=== PATIENT | female | born 1960 | race Caucasian/White ===

== ENCOUNTER 2022-07-08 10:29 | Inpatient (IN) | payer MEDICAID, OTHER ==
[~2022-07-08] VITALS: Ht 160 cm; Wt 61.1 kg
[2022-07-08] MEDS ORDERED: METOCLOPRAMIDE HCL 5MG/ml INJ 2ml VIAL IV ONE (11:00)
[2022-07-08] MEDS ORDERED: FAMOTIDINE (10MG/ML) 2ML VL IV ONE (11:00)
[2022-07-08] MEDS ORDERED: LACTATED RINGER'S 1,000 ML IV ONE (11:00)
[2022-07-08 11:31] LABS: Hematocrit 34.9 % (36.0-46.0); Hemoglobin 11.5 g/dL (12.2-16.2); Mean Corpuscular Hemoglobin 31.9 pg (28.0-32.0); Mean Corpuscular Hgb Conc. 33.1 g/dL (32.0-36.0); Mean Corpuscular Volume 96.3 fL (80.0-100.0); Red Blood Cells 3.62 10^6/uL (4.0-5.20); Red Cell Distribution Width 16.1 % (11.8-14.3); White Blood Cell 13.7 10^3/uL (4.4-10.8)
[2022-07-08 11:35] LABS: Basophils % (manual) 0 (0.0-2.0); Blast Cells 0; Eosinophils % (manual) 0 (0-7); Metamyelocytes % 0; Myelocytes % 0; Promyelocytes % 0; Reactive Lymphocytes 0
[2022-07-08 11:37] LABS: Urine Bacteria NONE SEEN /hpf (None Seen); Urine Blood 1+ /uL (Negative); Urine Mucus MANY (None Seen); Urine Specific Gravity 1.034 (1.001-1.035); Urine WBC 209 /hpf (0 - 5)
[2022-07-08 12:00] LABS: Albumin 2.6 g/dL (3.4-5.0); Calcium 8.6 mg/dL (8.5-10.1); Magnesium 2.9 mg/dL (1.6-2.6)
[2022-07-08 12:05] LABS: BUN/Creatinine Ratio 29.9 (10.0-20.0); Bilirubin, Total 0.8 mg/dL (0.2-1.0); Total Protein 6.7 g/dL (6.4-8.2)
[2022-07-08 12:44] LABS: Band Neutrophils % (manual) 21; Lymphocytes % (manual) 1 (10.0-50.0); Monocytes % (manual) 3 (0-12)
[2022-07-08] MEDS: MAALOX PLUS or MAALOX 30 ML PO ONE ×2 (13:03→14:40)
[2022-07-08] MEDS: LIDOCAINE VISCOUS 2% 15ML UD PO ONE ×2 (13:04→14:40)
[2022-07-08] MEDS: POTASSIUM CHL 20 Meq TABLET PO ONE ×2 (13:56→14:41)
[2022-07-08] MEDS ORDERED: PANT40T PO (14:22)
[2022-07-08] MEDS ORDERED: CHOL20003 PO (14:22)
[2022-07-08] MEDS ORDERED: HYDR12.56 PO (14:22)
[2022-07-08] MEDS ORDERED: FAMO40SU5 PO (14:22)
[2022-07-08] MEDS ORDERED: LEUC5TAB PO (14:22)
[2022-07-08] MEDS ORDERED: FAMO20TA10 PO (14:22)
[2022-07-08] MEDS ORDERED: GABA100C9 (14:22)
[2022-07-08] MEDS ORDERED: NIFE-3 (14:22)
[2022-07-08] MEDS ORDERED: ALEN70TA74 PO (14:22)
[2022-07-08] MEDS ORDERED: METH2.5T PO (14:22)
[2022-07-08] MEDS ORDERED: FAMO20TA7 (14:22)
[2022-07-08] MEDS ORDERED: MYCO500T3 PO (14:22)
[2022-07-08] MEDS ORDERED: cefTRIAXone 1GM/50ML D5W 50 ML IV ONE (14:30)
[2022-07-08] MEDS ORDERED: D5W/SOD CHL 0.45% 1,000 ML IV ONE (14:30)
[2022-07-08] MEDS ORDERED: PANTOPRAZOLE 40 MG/10 ML VIAL INJ IV ONE (14:30)
[2022-07-08 15:41] LABS: INR 1.22 (0.9-1.15)
[2022-07-09] MEDS ORDERED: POTASSIUM CHL 20MEQ/100ML 200 ML IV ONE (01:11)
[2022-07-09] MEDS: POTASSIUM CHL 20MEQ/100ML 100 ML IV SCH ×2 (02:01→04:00)
[2022-07-09 05:14] LABS: Basophils # (auto) 0 10 ^3/uL (0-0.2); Basophils % (auto) 0.1 % (0.0-2.0); Eosinophils # (auto) 0 10 ^3/uL (0-0.8); Eosinophils % (auto) 0.3 % (0.0-7.0); Hematocrit 31.4 % (36.0-46.0); Hemoglobin 10.5 g/dL (12.2-16.2); Lymphocytes # (auto) 0.2 10 ^3/uL (0.4-5.4); Lymphocytes % (auto) 1.2 % (10.0-50.0); Mean Corpuscular Hemoglobin 32.1 pg (28.0-32.0); Mean Corpuscular Hgb Conc. 33.4 g/dL (32.0-36.0); Monocytes % (auto) 8.4 % (0.0-12.0); Neutrophils # (auto) 11.2 10 ^3/uL (1.6-8.6); Red Blood Cells 3.27 10^6/uL (4.0-5.20); Red Cell Distribution Width 15.6 % (11.8-14.3); White Blood Cell 12.4 10^3/uL (4.4-10.8)
[2022-07-09 05:29] LABS: Albumin 2.1 g/dL (3.4-5.0); Calcium 7.8 mg/dL (8.5-10.1); Potassium 3.8 mmol/L (3.5-5.1)
[2022-07-09 05:33] LABS: BUN/Creatinine Ratio 42.9 (10.0-20.0); Bilirubin, Total 0.5 mg/dL (0.2-1.0); Total Protein 5.6 g/dL (6.4-8.2)
[2022-07-09] MEDS: cefTRIAXone 1GM/50ML D5W 50 ML IV SCH (10:12)
[2022-07-09] MEDS: PANTOPRAZOLE 40 MG/10 ML VIAL INJ IV SCH (10:12)
[2022-07-09 10:30] VITALS: BP 163/79
[2022-07-09] MEDS: D5W 5% 1,000 ML IV SCH ×2 (11:36→21:15)
[2022-07-09 13:00] VITALS: BP 163/79
[2022-07-09 14:53] LABS: Urine Bacteria NONE SEEN /hpf (None Seen); Urine Blood Negative /uL (Negative); Urine Mucus FEW (None Seen); Urine Specific Gravity 1.022 (1.001-1.035); Urine WBC 153 /hpf (0 - 5)
[2022-07-09 17:00] VITALS: BP 156/82
[2022-07-09 20:00] VITALS: BP 170/91
[2022-07-09 21:55] VITALS: BP 170/91
[2022-07-09] MEDS ORDERED: CLINIMIX PER PHARMACY 0 ML IV SCH (22:00)
[2022-07-09] MEDS ORDERED: AMINO ACID INFUSION IN D10W 1,000 ML IV NR (22:00)
[2022-07-09] MEDS: ONDANSETRON HCL 4 MG/2 ML VIAL IV PRN (22:52)
[2022-07-09] MEDS: InsuLIN REG 1unit/0.01ml Soln (100units/ml) SC SCH (23:56)
[2022-07-09] MEDS: ACCU-CHEK COMFORT CURVE STRIP VI SCH (23:56)
[2022-07-10] MEDS ORDERED: DEXTROSE (50%) 50ML SYRG IV SCH
[2022-07-10 05:01] VITALS: BP 135/75
[2022-07-10] MEDS: ACCU-CHEK COMFORT CURVE STRIP VI SCH ×3 (06:34→17:28)
[2022-07-10] MEDS: D5W 5% 1,000 ML IV SCH ×2 (06:35→17:15)
[2022-07-10] MEDS: InsuLIN REG 1unit/0.01ml Soln (100units/ml) SC SCH ×3 (06:35→17:27)
[2022-07-10 06:53] LABS: Basophils # (auto) 0 10 ^3/uL (0-0.2); Basophils % (auto) 0.2 % (0.0-2.0); Eosinophils # (auto) 0.2 10 ^3/uL (0-0.8); Eosinophils % (auto) 1.4 % (0.0-7.0); Hematocrit 31.9 % (36.0-46.0); Hemoglobin 10.8 g/dL (12.2-16.2); Lymphocytes # (auto) 0.1 10 ^3/uL (0.4-5.4); Lymphocytes % (auto) 1.1 % (10.0-50.0); Mean Corpuscular Hemoglobin 31.7 pg (28.0-32.0); Mean Corpuscular Hgb Conc. 33.8 g/dL (32.0-36.0); Mean Corpuscular Volume 93.8 fL (80.0-100.0); Monocytes % (auto) 8.2 % (0.0-12.0); Neutrophils # (auto) 10.4 10 ^3/uL (1.6-8.6); Neutrophils % (auto) 89.1 % (37.0-80.0); Red Blood Cells 3.41 10^6/uL (4.0-5.20); Red Cell Distribution Width 15.9 % (11.8-14.3); White Blood Cell 11.7 10^3/uL (4.4-10.8)
[2022-07-10 07:13] LABS: Potassium 3.3 mmol/L (3.5-5.1)
[2022-07-10 07:21] LABS: Albumin 2.1 g/dL (3.4-5.0); Bilirubin, Total 0.5 mg/dL (0.2-1.0); Calcium 7.7 mg/dL (8.5-10.1); Magnesium 2.1 mg/dL (1.6-2.6); Phosphorus 1.4 mg/dL (2.5-4.90); Total Protein 4.9 g/dL (6.4-8.2)
[2022-07-10 09:00] VITALS: BP 148/85
[2022-07-10] MEDS ORDERED: POTASSIUM PHOSPHATE 44 MEQ in D5W 5% 250 ML IV ONE (09:15)
[2022-07-10] MEDS: PANTOPRAZOLE 40 MG/10 ML VIAL INJ IV SCH (09:45)
[2022-07-10] MEDS: cefTRIAXone 1GM/50ML D5W 50 ML IV SCH (09:45)
[2022-07-10] MEDS ORDERED: SODIUM CHLORIDE LOCK 0 ML ONE (12:40)
[2022-07-10] MEDS ORDERED: LIDOCAINE VISCOUS 2% 15ML UD ONE ×2 (12:40→12:43)
[2022-07-10] MEDS ORDERED: MIDAZOLAM HCL 5 MG/ML-1ML VIAL ONE (12:40)
[2022-07-10] MEDS ORDERED: diphenhdrAMINE HCL 50 MG/1 ML VL ONE (12:41)
[2022-07-10] MEDS ORDERED: fentaNYL CITRATE 100 MCG/2 ML VL ONE ×2 (12:42→15:19)
[2022-07-10 13:00] VITALS: BP 155/86
[2022-07-10] MEDS: ONDANSETRON HCL 4 MG/2 ML VIAL IV PRN (14:47)
[2022-07-10] MEDS ORDERED: MIDAZOLAM HCL 2MG/2ML 2ml VIAL (1mg/ml) ONE (15:19)
[2022-07-10] MEDS ORDERED: PROPOFOL 10 MG/ML 20 ML IV ONE (15:47)
[2022-07-10] MEDS ORDERED: ONDANSETRON HCL 4 MG/2 ML VIAL IV PRN (16:00)
[2022-07-10] MEDS ORDERED: AMINO ACID INFUSION IN D10W 1,000 ML IV NR (20:00)
[2022-07-10 22:00] VITALS: BP 149/79
[2022-07-11] MEDS: ACCU-CHEK COMFORT CURVE STRIP VI SCH ×5 (00:18→23:22)
[2022-07-11 05:00] VITALS: BP 135/80
[2022-07-11] MEDS: InsuLIN REG 1unit/0.01ml Soln (100units/ml) SC SCH ×5 (06:38→23:23)
[2022-07-11 07:25] LABS: BUN/Creatinine Ratio 27.8 (10.0-20.0); Calcium 7.8 mg/dL (8.5-10.1); Phosphorus 2.7 mg/dL (2.5-4.90); Potassium 3.2 mmol/L (3.5-5.1)
[2022-07-11 08:25] VITALS: BP 108/70
[2022-07-11] MEDS ORDERED: TPN PER PHARMACY 0 ML IV SCH (09:00)
[2022-07-11] MEDS: cefTRIAXone 1GM/50ML D5W 50 ML IV SCH (10:57)
[2022-07-11] MEDS: PANTOPRAZOLE 40 MG/10 ML VIAL INJ IV SCH (10:57)
[2022-07-11 12:25] VITALS: BP 119/76
[2022-07-11] MEDS ORDERED: LIDOCAINE 1% (LOCAL ANESTH.) PF 5ml SDV ID ONE (13:00)
[2022-07-11] MEDS: ONDANSETRON HCL 4 MG/2 ML VIAL IV PRN (13:38)
[2022-07-11] MEDS: MORPHINE SULFATE INJ 2 MG/ml SYRG IV PRN ×2 (13:38→22:00)
[2022-07-11] MEDS: POTASSIUM CHL 20MEQ/100ML 100 ML IV SCH ×2 (14:09→16:11)
[2022-07-11 16:15] VITALS: BP 139/83
[2022-07-11] MEDS ORDERED: PPN PER PHARMACY IV NR ×9 (20:00)
[2022-07-11 22:00] VITALS: BP 130/76
[2022-07-11] MEDS: SODIUM CHLOR 0.9% PF (SALINE LOCK) 10ML VIAL/SYR IV SCH (23:22)
[2022-07-12 05:00] VITALS: BP 117/72
[2022-07-12] MEDS: InsuLIN REG 1unit/0.01ml Soln (100units/ml) SC SCH ×3 (06:00→17:58)
[2022-07-12] MEDS: ACCU-CHEK COMFORT CURVE STRIP VI SCH ×3 (06:56→17:59)
[2022-07-12 07:44] LABS: Basophils # (auto) 0 10 ^3/uL (0-0.2); Basophils % (auto) 0.4 % (0.0-2.0); Eosinophils # (auto) 0.1 10 ^3/uL (0-0.8); Eosinophils % (auto) 0.8 % (0.0-7.0); Hematocrit 33.1 % (36.0-46.0); Hemoglobin 11.2 g/dL (12.2-16.2); Lymphocytes # (auto) 0.2 10 ^3/uL (0.4-5.4); Lymphocytes % (auto) 2.1 % (10.0-50.0); Mean Corpuscular Hemoglobin 31.8 pg (28.0-32.0); Mean Corpuscular Hgb Conc. 33.7 g/dL (32.0-36.0); Mean Corpuscular Volume 94.2 fL (80.0-100.0); Monocytes # (auto) 0.9 10 ^3/uL (0-1.3); Monocytes % (auto) 9.4 % (0.0-12.0); Neutrophils # (auto) 8.7 10 ^3/uL (1.6-8.6); Neutrophils % (auto) 87.3 % (37.0-80.0); Red Blood Cells 3.52 10^6/uL (4.0-5.20); Red Cell Distribution Width 16.2 % (11.8-14.3)
[2022-07-12 08:02] LABS: Magnesium 2.1 mg/dL (1.6-2.6); Potassium 3.8 mmol/L (3.5-5.1)
[2022-07-12 08:08] LABS: Bilirubin, Total 0.3 mg/dL (0.2-1.0); Calcium 8.1 mg/dL (8.5-10.1); Phosphorus 2.3 mg/dL (2.5-4.90); Total Protein 5.7 g/dL (6.4-8.2)
[2022-07-12 09:00] VITALS: BP 154/84
[2022-07-12] MEDS: SODIUM CHLOR 0.9% PF (SALINE LOCK) 10ML VIAL/SYR IV SCH ×2 (09:34→22:00)
[2022-07-12] MEDS: PANTOPRAZOLE 40 MG/10 ML VIAL INJ IV SCH (09:34)
[2022-07-12] MEDS: cefTRIAXone 1GM/50ML D5W 50 ML IV SCH (09:34)
[2022-07-12 13:11] VITALS: BP 115/77
[2022-07-12 17:00] VITALS: BP 122/75
[2022-07-12] MEDS: MORPHINE SULFATE INJ 2 MG/ml SYRG IV PRN (18:32)
[2022-07-12] MEDS: ONDANSETRON HCL 4 MG/2 ML VIAL IV PRN (18:32)
[2022-07-12] MEDS ORDERED: SODIUM PHOSPHATES IV NR ×8 (20:00)
[2022-07-12] MEDS ORDERED: POTASSIUM PHOSPHATE IV NR ×8 (20:00)
[2022-07-12] MEDS ORDERED: SODIUM CHLORIDE IV NR ×8 (20:00)
[2022-07-12] MEDS ORDERED: [UNRECOGNIZED DRUG - OTHER] IV NR ×8 (20:00)
[2022-07-12 22:00] VITALS: BP_SYST 124; BP_SYST 99; BP_DIAS 62; BP_DIAS 78
[2022-07-13] MEDS: ACCU-CHEK COMFORT CURVE STRIP VI SCH ×4 (00:08→17:52)
[2022-07-13] MEDS: ONDANSETRON HCL 4 MG/2 ML VIAL IV PRN ×2 (00:22→16:52)
[2022-07-13] MEDS: MORPHINE SULFATE INJ 2 MG/ml SYRG IV PRN ×2 (00:22→16:52)
[2022-07-13 05:01] VITALS: BP 103/64
[2022-07-13] MEDS: InsuLIN REG 1unit/0.01ml Soln (100units/ml) SC SCH ×4 (05:40→17:52)
[2022-07-13 08:06] LABS: BUN/Creatinine Ratio 34.8 (10.0-20.0); Calcium 8.2 mg/dL (8.5-10.1); Magnesium 2.2 mg/dL (1.6-2.6); Potassium 3.8 mmol/L (3.5-5.1)
[2022-07-13 08:08] LABS: Bilirubin, Total 0.3 mg/dL (0.2-1.0); Phosphorus 3.2 mg/dL (2.5-4.90)
[2022-07-13 09:00] VITALS: BP 105/62
[2022-07-13] MEDS: cefTRIAXone 1GM/50ML D5W 50 ML IV SCH (09:22)
[2022-07-13] MEDS: SODIUM CHLOR 0.9% PF (SALINE LOCK) 10ML VIAL/SYR IV SCH (11:58)
[2022-07-13] MEDS: PANTOPRAZOLE 40 MG/10 ML VIAL INJ IV SCH (11:58)
[2022-07-13 13:00] VITALS: BP_SYST 118; BP_SYST 130; BP_DIAS 69; BP_DIAS 78
[2022-07-13 17:00] VITALS: BP 144/78
[2022-07-13 17:22] VITALS: BP 141/70
[2022-07-13] MEDS ORDERED: TPN PER PHARMACY IV NR ×10 (20:00)
== END 2022-07-13 20:58 | disposition short-term general hospital (02) | DRG 240 ==
LOC: ER 10:29 → OVERFLOW 14:17 → WEST WING 07-09 09:16
PROVIDERS: ADMIT Nurse Practitioner Family; ATTEND Internal Medicine Pulmonary Disease
PROC: 0DB58ZX Excision of Esophagus, Via Natural or Artificial Opening Endoscopic, Diagnostic (ICD-10-PCS; principal; 2022-07-10 15:23)
PROC: 02HV33Z Insertion of Infusion Device into Superior Vena Cava, Percutaneous Approach (ICD-10-PCS; 2022-07-11)
PROC: B548ZZA Ultrasonography of Superior Vena Cava, Guidance (ICD-10-PCS; 2022-07-11)
DX: C15.9 Malignant neoplasm of esophagus, unspecified (principal); E44.1 Mild protein-calorie malnutrition; J90 Pleural effusion, not elsewhere classified; E86.0 Dehydration; E87.6 Hypokalemia; N39.0 Urinary tract infection, site not specified; F17.200 Nicotine dependence, unspecified, uncomplicated; Z20.822 Contact with and (suspected) exposure to COVID-19; I10 Essential (primary) hypertension; Z80.1 Family history of malignant neoplasm of trachea, bronchus and lung; Z80.8 Family history of malignant neoplasm of other organs or systems; Z82.49 Family history of ischemic heart disease and other diseases of the circulatory system; Z83.2 Family history of diseases of the blood and blood-forming organs and certain disorders involving the immune mechanism; Z90.710 Acquired absence of both cervix and uterus; Z94.7 Corneal transplant status; Z68.23 Body mass index [BMI] 23.0-23.9, adult; R13.12 Dysphagia, oropharyngeal phase
CPT/HCPCS: 36415; 36569; 71045; 71250; 74176; 80048; 80053; 81001; 82962; 83735; 83880; 84100; 84478; 85007; 85025; 85027; 85610; 86850; 86900; 86901; 87040; 87081; 87086; 87426; 93005; 96365; 96375; C9113; G0378; J0696; J1815; J2250; J2405; J2704; J3480; J3490; J7042; J7060; J7131

== ENCOUNTER 2022-07-18 12:20 | Inpatient (IN) | payer MEDICAID ==
[~2022-07-18] VITALS: Ht 160 cm; Wt 65.0 kg
[~2022-07-18 12:20] MED LIST: ALEN70TA74 PO; CHOL20003 PO; FAMO20TA10 PO; FAMO20TA7; FAMO40SU5 PO; GABA100C9; HYDR12.56 PO; LEUC5TAB PO; METH2.5T PO; MYCO500T3 PO; NIFE-3; PANT40T PO
[2022-07-18 22:48] VITALS: BP 135/76
[2022-07-19] MEDS ORDERED: OXYC-589 GT (01:28)
[2022-07-19] MEDS ORDERED: FURO20TA3 PO (01:51)
[2022-07-19] MEDS ORDERED: GABA100C9 GT (01:51)
[2022-07-19] MEDS ORDERED: METH750T22 GT (01:51)
[2022-07-19] MEDS ORDERED: HYDR12.56 PO (01:51)
[2022-07-19] MEDS ORDERED: POLY33504 GT (01:51)
[2022-07-19] MEDS ORDERED: ACETAMINOPHEN 325 MG TAB PO PRN (04:15)
[2022-07-19] MEDS ORDERED: NITROGLYCERIN 0.4 MG SL TAB SL PRN (04:15)
[2022-07-19] MEDS ORDERED: cefTRIAXone 1GM/50ML D5W 50 ML IV ONE (04:15)
[2022-07-19] MEDS ORDERED: DOCUSATE SOD 100 MG CAP PO PRN (04:15)
[2022-07-19] MEDS ORDERED: HYDROcodone-ACET 5/325MG TAB PO PRN (04:15)
[2022-07-19] MEDS ORDERED: MORPHINE SULFATE INJ 2 MG/ml SYRG IV PRN (04:15)
[2022-07-19 04:30] VITALS: BP 126/79
[2022-07-19] MEDS ORDERED: hydrALAZINE HCL 20 MG/ML VL IV PRN (04:30)
[2022-07-19 06:32] LABS: Basophils # (auto) 0.1 10 ^3/uL (0-0.2); Basophils % (auto) 0.6 % (0.0-2.0); Eosinophils # (auto) 0.1 10 ^3/uL (0-0.8); Eosinophils % (auto) 0.6 % (0.0-7.0); Hematocrit 27.4 % (36.0-46.0); Hemoglobin 9.3 g/dL (12.2-16.2); Lymphocytes # (auto) 0.4 10 ^3/uL (0.4-5.4); Mean Corpuscular Hemoglobin 31.5 pg (28.0-32.0); Mean Corpuscular Hgb Conc. 33.7 g/dL (32.0-36.0); Mean Corpuscular Volume 93.4 fL (80.0-100.0); Monocytes % (auto) 7.8 % (0.0-12.0); Neutrophils # (auto) 11.1 10 ^3/uL (1.6-8.6); Red Blood Cells 2.94 10^6/uL (4.0-5.20); Red Cell Distribution Width 16.8 % (11.8-14.3); White Blood Cell 12.6 10^3/uL (4.4-10.8)
[2022-07-19] MEDS: D5W/SOD CHLO 0.9% 1,000 ML IV SCH ×2 (06:39→18:06)
[2022-07-19 06:45] LABS: Albumin 2.1 g/dL (3.4-5.0); BUN/Creatinine Ratio 31.4 (10.0-20.0); Calcium 8.2 mg/dL (8.5-10.1); Potassium 3.7 mmol/L (3.5-5.1)
[2022-07-19 06:48] LABS: Bilirubin, Total 0.4 mg/dL (0.2-1.0); Total Protein 5.7 g/dL (6.4-8.2)
[2022-07-19 08:00] VITALS: BP 129/73
[2022-07-19 09:00] VITALS: BP 129/73
[2022-07-19] MEDS: cefTRIAXone 1GM/50ML D5W 50 ML IV SCH (09:40)
[2022-07-19] MEDS: FAMOTIDINE (10MG/ML) 2ML VL IV SCH ×2 (09:41→22:50)
[2022-07-19 13:00] VITALS: BP 142/72
[2022-07-19 17:00] VITALS: BP 149/69
[2022-07-19 22:00] VITALS: BP 142/80
[2022-07-19] MEDS: MORPHINE SULFATE INJ 2 MG/ml SYRG IV PRN (22:52)
[2022-07-20 05:00] VITALS: BP 129/78
[2022-07-20 06:23] LABS: Basophils # (auto) 0.1 10 ^3/uL (0-0.2); Basophils % (auto) 0.6 % (0.0-2.0); Eosinophils # (auto) 0.1 10 ^3/uL (0-0.8); Hematocrit 26.5 % (36.0-46.0); Hemoglobin 8.8 g/dL (12.2-16.2); Lymphocytes # (auto) 0.4 10 ^3/uL (0.4-5.4); Lymphocytes % (auto) 3.9 % (10.0-50.0); Mean Corpuscular Hemoglobin 31.2 pg (28.0-32.0); Mean Corpuscular Hgb Conc. 33.2 g/dL (32.0-36.0); Mean Corpuscular Volume 93.7 fL (80.0-100.0); Neutrophils # (auto) 7.7 10 ^3/uL (1.6-8.6); Neutrophils % (auto) 83.5 % (37.0-80.0); Red Blood Cells 2.83 10^6/uL (4.0-5.20); Red Cell Distribution Width 16.4 % (11.8-14.3); White Blood Cell 9.2 10^3/uL (4.4-10.8)
[2022-07-20 06:34] LABS: Potassium 3.6 mmol/L (3.5-5.1)
[2022-07-20 06:48] LABS: Albumin 1.9 g/dL (3.4-5.0); BUN/Creatinine Ratio 19.4 (10.0-20.0); Bilirubin, Total 0.4 mg/dL (0.2-1.0); Total Protein 5.4 g/dL (6.4-8.2)
[2022-07-20 08:00] VITALS: BP 130/85
[2022-07-20] MEDS: D5W/SOD CHLO 0.9% 1,000 ML IV SCH ×2 (08:50→20:15)
[2022-07-20 09:00] VITALS: BP 130/83
[2022-07-20] MEDS: FAMOTIDINE (10MG/ML) 2ML VL IV SCH ×2 (12:34→21:26)
[2022-07-20] MEDS: cefTRIAXone 1GM/50ML D5W 50 ML IV SCH (12:35)
[2022-07-20] MEDS ORDERED: PPN PER PHARMACY 0 ML IV SCH (13:00)
[2022-07-20 15:55] LABS: Magnesium 2.2 mg/dL (1.6-2.6); Phosphorus 3.1 mg/dL (2.5-4.90)
[2022-07-20] MEDS: AMINO ACID INFUSION IN D10W 1,000 ML IV NR (20:15)
[2022-07-20] MEDS: MORPHINE SULFATE INJ 2 MG/ml SYRG IV PRN (21:39)
[2022-07-20 22:00] VITALS: BP 159/79
[2022-07-21] MEDS ORDERED: DEXTROSE (50%) 50ML SYRG IV SCH
[2022-07-21] MEDS: ACCU-CHEK COMFORT CURVE STRIP VI SCH ×5 (00:53→23:52)
[2022-07-21 05:00] VITALS: BP 142/80
[2022-07-21] MEDS: InsuLIN REG 1unit/0.01ml Soln (100units/ml) SC SCH ×5 (05:33→23:52)
[2022-07-21 06:33] LABS: Potassium 3.4 mmol/L (3.5-5.1)
[2022-07-21 06:45] LABS: BUN/Creatinine Ratio 13.9 (10.0-20.0); Bilirubin, Total 0.5 mg/dL (0.2-1.0); Calcium 8.4 mg/dL (8.5-10.1); Phosphorus 3.4 mg/dL (2.5-4.90); Total Protein 5.6 g/dL (6.4-8.2)
[2022-07-21 08:00] VITALS: BP 136/83
[2022-07-21] MEDS: cefTRIAXone 1GM/50ML D5W 50 ML IV SCH (08:54)
[2022-07-21 09:00] VITALS: BP_SYST 115; BP_SYST 136; BP_DIAS 70; BP_DIAS 83
[2022-07-21] MEDS: FAMOTIDINE (10MG/ML) 2ML VL IV SCH ×2 (11:55→21:03)
[2022-07-21] MEDS: D5W/SOD CHLO 0.9% 1,000 ML IV SCH (11:55)
[2022-07-21 13:00] VITALS: BP_SYST 108; BP_SYST 111; BP_DIAS 67; BP_DIAS 72
[2022-07-21] MEDS: MORPHINE SULFATE INJ 2 MG/ml SYRG IV PRN ×2 (15:27→22:07)
[2022-07-21 16:51] VITALS: BP_SYST 138; BP_SYST 144; BP_DIAS 79; BP_DIAS 81
[2022-07-21] MEDS: AMINO ACID INFUSION IN D10W 1,000 ML IV NR (19:49)
[2022-07-21] MEDS ORDERED: PPN PER PHARMACY IV NR ×10 (20:00)
[2022-07-21] MEDS ORDERED: D5W/SOD CHLO 0.9% 1,000 ML IV SCH (20:00)
[2022-07-21 22:00] VITALS: BP 151/88
[2022-07-22 05:00] VITALS: BP 121/86
[2022-07-22] MEDS: ACCU-CHEK COMFORT CURVE STRIP VI SCH ×3 (05:37→17:29)
[2022-07-22] MEDS: InsuLIN REG 1unit/0.01ml Soln (100units/ml) SC SCH ×3 (05:38→17:29)
[2022-07-22 06:45] LABS: Albumin 2.2 g/dL (3.4-5.0); Calcium 8.3 mg/dL (8.5-10.1); Magnesium 2.2 mg/dL (1.6-2.6); Potassium 3.5 mmol/L (3.5-5.1)
[2022-07-22 06:49] LABS: BUN/Creatinine Ratio 18.4 (10.0-20.0); Bilirubin, Total 0.5 mg/dL (0.2-1.0); Total Protein 6.2 g/dL (6.4-8.2)
[2022-07-22 07:37] LABS: Basophils # (auto) 0.1 10 ^3/uL (0-0.2); Basophils % (auto) 0.7 % (0.0-2.0); Eosinophils # (auto) 0.1 10 ^3/uL (0-0.8); Lymphocytes # (auto) 0.6 10 ^3/uL (0.4-5.4); Monocytes # (auto) 0.9 10 ^3/uL (0-1.3); Nucleated Red Blood Cells % 0.1 %; White Blood Cell 8.3 10^3/uL (4.4-10.8)
[2022-07-22 07:39] LABS: Hematocrit 30.5 % (36.0-46.0); Hemoglobin 10.3 g/dL (12.2-16.2); Lymphocytes % (auto) 7.6 % (10.0-50.0); Mean Corpuscular Hemoglobin 31.2 pg (28.0-32.0); Mean Corpuscular Hgb Conc. 33.7 g/dL (32.0-36.0); Mean Corpuscular Volume 92.6 fL (80.0-100.0); Monocytes % (auto) 11.3 % (0.0-12.0); Neutrophils # (auto) 6.6 10 ^3/uL (1.6-8.6); Neutrophils % (auto) 79.4 % (37.0-80.0)
[2022-07-22 09:00] VITALS: BP 136/88
[2022-07-22] MEDS ORDERED: POTASSIUM CHL 20MEQ/100ML 100 ML IV ONE (09:00)
[2022-07-22] MEDS: cefTRIAXone 1GM/50ML D5W 50 ML IV SCH (09:52)
[2022-07-22] MEDS: FAMOTIDINE (10MG/ML) 2ML VL IV SCH ×2 (09:52→21:03)
[2022-07-22] MEDS ORDERED: Vital AF 1.2 Cal 1 liter bottle GT SCH (11:00)
[2022-07-22 13:00] VITALS: BP 150/95
[2022-07-22 17:00] VITALS: BP 114/85
[2022-07-22] MEDS: D5W/SOD CHLO 0.9% 1,000 ML IV SCH ×2 (17:30→22:45)
[2022-07-22] MEDS ORDERED: PPN PER PHARMACY IV NR ×11 (20:00)
[2022-07-22 22:00] VITALS: BP 126/84
[2022-07-23 05:00] VITALS: BP 107/65
[2022-07-23 06:02] LABS: Albumin 2.2 g/dL (3.4-5.0); Calcium 8.2 mg/dL (8.5-10.1); Magnesium 2.5 mg/dL (1.6-2.6); Potassium 3.7 mmol/L (3.5-5.1)
[2022-07-23 06:04] LABS: Basophils # (auto) 0.1 10 ^3/uL (0-0.2); Basophils % (auto) 0.5 % (0.0-2.0); Eosinophils # (auto) 0.1 10 ^3/uL (0-0.8); Hematocrit 31.5 % (36.0-46.0); Hemoglobin 10.2 g/dL (12.2-16.2); Lymphocytes # (auto) 0.5 10 ^3/uL (0.4-5.4); Lymphocytes % (auto) 4.3 % (10.0-50.0); Mean Corpuscular Hemoglobin 30.9 pg (28.0-32.0); Mean Corpuscular Hgb Conc. 32.4 g/dL (32.0-36.0); Mean Corpuscular Volume 95.4 fL (80.0-100.0); Monocytes # (auto) 1.2 10 ^3/uL (0-1.3); Monocytes % (auto) 11.7 % (0.0-12.0); Neutrophils # (auto) 8.7 10 ^3/uL (1.6-8.6); Neutrophils % (auto) 82.5 % (37.0-80.0); Nucleated Red Blood Cells % 0.1 %; Red Cell Distribution Width 16.8 % (11.8-14.3); White Blood Cell 10.6 10^3/uL (4.4-10.8)
[2022-07-23 06:07] LABS: BUN/Creatinine Ratio 36.6 (10.0-20.0); Bilirubin, Total 0.5 mg/dL (0.2-1.0); Phosphorus 2.5 mg/dL (2.5-4.90); Total Protein 6.1 g/dL (6.4-8.2)
[2022-07-23] MEDS: cefTRIAXone 1GM/50ML D5W 50 ML IV SCH (08:41)
[2022-07-23] MEDS: FAMOTIDINE (10MG/ML) 2ML VL IV SCH ×2 (08:41→21:04)
[2022-07-23 09:00] VITALS: BP 121/71
[2022-07-23 13:00] VITALS: BP 144/83
[2022-07-23 16:36] VITALS: BP 146/79
[2022-07-23 22:00] VITALS: BP 139/71
[2022-07-24 04:57] VITALS: BP 151/77
[2022-07-24 09:00] VITALS: BP 137/80
[2022-07-24] MEDS: FAMOTIDINE (10MG/ML) 2ML VL IV SCH ×2 (10:14→20:49)
[2022-07-24 13:00] VITALS: BP 131/80
[2022-07-24 16:39] VITALS: BP 148/81
[2022-07-24] MEDS: MORPHINE SULFATE INJ 2 MG/ml SYRG IV PRN (20:43)
[2022-07-24] MEDS: ONDANSETRON HCL 4 MG/2 ML VIAL IV PRN (20:43)
[2022-07-24 22:00] VITALS: BP 130/81
[2022-07-25 05:00] VITALS: BP 116/66
[2022-07-25 08:30] VITALS: BP 127/69
[2022-07-25] MEDS: FAMOTIDINE (10MG/ML) 2ML VL IV SCH ×2 (10:00→22:13)
[2022-07-25 13:00] VITALS: BP 110/67
[2022-07-25 16:19] VITALS: BP 118/65
[2022-07-25 22:00] VITALS: BP 124/69
[2022-07-25] MEDS: ONDANSETRON HCL 4 MG/2 ML VIAL IV PRN (22:20)
[2022-07-25] MEDS: MORPHINE SULFATE INJ 2 MG/ml SYRG IV PRN (22:21)
[2022-07-26 05:00] VITALS: BP 113/63
[2022-07-26 09:00] VITALS: BP 112/59
[2022-07-26] MEDS: ONDANSETRON HCL 4 MG/2 ML VIAL IV PRN (09:01)
[2022-07-26] MEDS: MORPHINE SULFATE INJ 2 MG/ml SYRG IV PRN (09:02)
[2022-07-26 09:32] VITALS: BP 105/58
[2022-07-26] MEDS: FAMOTIDINE (10MG/ML) 2ML VL IV SCH (10:00)
== END 2022-07-26 09:46 | disposition home or self-care (01) | DRG 240 ==
LOC: WEST WING 21:30
PROVIDERS: ADMIT Nurse Practitioner Family; ATTEND Internal Medicine Pulmonary Disease
DX: C15.9 Malignant neoplasm of esophagus, unspecified (principal); Z93.4 Other artificial openings of gastrointestinal tract status; E86.0 Dehydration; N39.0 Urinary tract infection, site not specified; E66.01 Morbid (severe) obesity due to excess calories; F32.A Depression, unspecified; F41.9 Anxiety disorder, unspecified; R07.0 Pain in throat; K22.9 Disease of esophagus, unspecified; I10 Essential (primary) hypertension; J44.9 Chronic obstructive pulmonary disease, unspecified; R13.10 Dysphagia, unspecified; Z80.1 Family history of malignant neoplasm of trachea, bronchus and lung; Z82.49 Family history of ischemic heart disease and other diseases of the circulatory system; Z83.2 Family history of diseases of the blood and blood-forming organs and certain disorders involving the immune mechanism; Z90.710 Acquired absence of both cervix and uterus; Z94.7 Corneal transplant status; Z93.1 Gastrostomy status; Z68.24 Body mass index [BMI] 24.0-24.9, adult
CPT/HCPCS: 36415; 80053; 82962; 83735; 84100; 84478; 85025; 87081; 97110; 97116; 97163; G0378; J0696; J2405; J3480; J3490; J7042; J7131